=== PATIENT | female | born 1985 | race Caucasian/White ===

== ENCOUNTER 2025-03-26 04:27 | Observation (INO) | payer BC, SELFPAY ==
[2025-03-26 05:30] VITALS: BP 124/72
== END 2025-03-26 06:12 | disposition home or self-care (01) ==
LOC: LDRP 04:27
PROVIDERS: ADMITTING PHYSICIAN Obstetrics & Gynecology
DX: O36.8130 Decreased fetal movements, third trimester, not applicable or unspecified (principal); Z3A.28 28 weeks gestation of pregnancy
CPT/HCPCS: 59025; G0378

== ENCOUNTER → 2025-04-30 12:01 | Outpatient (REF) | payer BC, SELFPAY | LOC: PNTC 12:01 | PROVIDERS: ATTENDING PHYSICIAN Obstetrics & Gynecology | DX: O09.529 Supervision of elderly multigravida, unspecified trimester (principal); O99.210 Obesity complicating pregnancy, unspecified trimester; Q27.0 Congenital absence and hypoplasia of umbilical artery | CPT/HCPCS: 59025; 76816 ==

== ENCOUNTER 2025-05-07 15:04 | Observation (INO) | payer BC, SELFPAY ==
[2025-05-07 15:44] VITALS: BP 130/91; BMI 46.8
[2025-05-07 15:45] LABS: Hematocrit 38.1 % (37.0-47.0); Hemoglobin 12.8 g/dL (12.0-16.0); Mean Corp Hgb Conc. 33.6 g/dL (33.0-37.0); Mean Corpuscular Volume 84.7 fL (81.0-99.0); Nucleated Red Blood Cells % 0 %; Platelet Count 182 10^3/uL (130-400); Red Cell Dist. Width 14.5 % (11.5-14.5)
[2025-05-07 16:00] LABS: ALT (SGPT) 26 U/L (0-35); AST (SGOT) 22 U/L (14-36); Albumin 3.3 g/dl (3.5-5.0); Alkaline Phosphatase 279 U/L (38-126); Blood Urea Nitrogen 9 mg/dl (7-17); Calcium 9.5 mg/dl (8.4-10.2); Carbon Dioxide 22 mmol/L (22-30); Chloride 107 mmol/L (98-107); Estimated Creatinine Clearance > 125 ml/min; Glucose 115 mg/dl (70-99); Potassium 4.1 mmol/L (3.5-5.1); Sodium 134 mmol/L (135-145); Total Protein 5.7 g/dl (6.3-8.2); eGFR > 60.00
== END 2025-05-07 16:40 | disposition home or self-care (01) ==
LOC: PNTC-IN 15:04
PROVIDERS: ADMITTING PHYSICIAN Obstetrics & Gynecology; ATTENDING PHYSICIAN Student in an Organized Health Care Education/Training Program
DX: O26.893 Other specified pregnancy related conditions, third trimester (principal); O09.523 Supervision of elderly multigravida, third trimester; R03.0 Elevated blood-pressure reading, without diagnosis of hypertension; Z3A.34 34 weeks gestation of pregnancy
CPT/HCPCS: 59025; 76815; 80053; 82570; 84156; 85025; G0378

== ENCOUNTER 2025-05-15 11:57 | Observation (INO) | payer BC, SELFPAY ==
[2025-05-15 12:40] LABS: Hematocrit 40.2 % (37.0-47.0); Hemoglobin 13.5 g/dL (12.0-16.0); Mean Corp Hgb Conc. 33.6 g/dL (33.0-37.0); Mean Corpuscular Volume 85.0 fL (81.0-99.0); Platelet Count 172 10^3/uL (130-400); Red Cell Dist. Width 14.4 % (11.5-14.5)
[2025-05-15 12:47] LABS: Urine Character Clear (Clear)
[2025-05-15 12:50] LABS: ALT (SGPT) 25 U/L (0-35); AST (SGOT) 22 U/L (14-36); Albumin 3.3 g/dl (3.5-5.0); Alkaline Phosphatase 290 U/L (38-126); Blood Urea Nitrogen 12 mg/dl (7-17); Calcium 10.1 mg/dl (8.4-10.2); Carbon Dioxide 23 mmol/L (22-30); Chloride 107 mmol/L (98-107); Glucose 98 mg/dl (70-99); Potassium 3.8 mmol/L (3.5-5.1); Sodium 134 mmol/L (135-145); Total Protein 5.7 g/dl (6.3-8.2); eGFR > 60.00
[2025-05-15 12:52] VITALS: BP 145/92; BMI 46.8
[2025-05-15 12:58] LABS: Urine Red Blood Cell 0-2 /HPF (0-2); Urine Squamous Cell 21-25 /LPF (Few)
== END 2025-05-15 14:20 | disposition home or self-care (01) ==
LOC: PNTC-IN 11:57
PROVIDERS: ADMITTING PHYSICIAN Obstetrics & Gynecology; ATTENDING PHYSICIAN Student in an Organized Health Care Education/Training Program
DX: O26.893 Other specified pregnancy related conditions, third trimester (principal); O99.213 Obesity complicating pregnancy, third trimester; O09.523 Supervision of elderly multigravida, third trimester; Z3A.35 35 weeks gestation of pregnancy; Q27.0 Congenital absence and hypoplasia of umbilical artery; O99.343 Other mental disorders complicating pregnancy, third trimester; F32.A Depression, unspecified; Z36.1 Encounter for antenatal screening for raised alphafetoprotein level; Z88.5 Allergy status to narcotic agent; Z90.5 Acquired absence of kidney; Z79.82 Long term (current) use of aspirin; Z79.899 Other long term (current) drug therapy; Z83.3 Family history of diabetes mellitus; Z80.8 Family history of malignant neoplasm of other organs or systems; Z87.442 Personal history of urinary calculi
CPT/HCPCS: 59025; 76815; 80053; 81003; 81015; 82570; 84156; 85027; 86850; 86900; 86901; G0378

== ENCOUNTER → 2025-05-17 13:57 | Outpatient (REF) | payer BC, SELFPAY | LOC: PNTC 13:57 | PROVIDERS: ATTENDING PHYSICIAN Obstetrics & Gynecology | DX: O13.9 Gestational [pregnancy-induced] hypertension without significant proteinuria, unspecified trimester (principal) | CPT/HCPCS: 59025 ==

== ENCOUNTER 2025-05-21 09:18 | Observation (INO) | payer BC, SELFPAY ==
[2025-05-21 09:43] LABS: Hematocrit 41.2 % (37.0-47.0); Hemoglobin 13.7 g/dL (12.0-16.0); Mean Corp Hgb Conc. 33.3 g/dL (33.0-37.0); Mean Corpuscular Volume 85.3 fL (81.0-99.0); Platelet Count 172 10^3/uL (130-400); Red Cell Dist. Width 14.4 % (11.5-14.5)
[2025-05-21 09:44] LABS: Nucleated Red Blood Cells % 0 %
[2025-05-21 10:01] VITALS: BP 140/92; BMI 46.8
[2025-05-21 10:09] LABS: ALT (SGPT) 26 U/L (0-35); AST (SGOT) 23 U/L (14-36); Albumin 3.4 g/dl (3.5-5.0); Alkaline Phosphatase 334 U/L (38-126); Blood Urea Nitrogen 10 mg/dl (7-17); Calcium 9.4 mg/dl (8.4-10.2); Carbon Dioxide 23 mmol/L (22-30); Chloride 107 mmol/L (98-107); Glucose 81 mg/dl (70-99); Potassium 3.9 mmol/L (3.5-5.1); Sodium 136 mmol/L (135-145); Total Protein 5.8 g/dl (6.3-8.2); eGFR > 60.00
== END 2025-05-21 10:20 | disposition home or self-care (01) ==
LOC: PNTC-IN 09:18
PROVIDERS: ADMITTING PHYSICIAN Obstetrics & Gynecology
DX: O26.893 Other specified pregnancy related conditions, third trimester (principal); O09.513 Supervision of elderly primigravida, third trimester; O99.213 Obesity complicating pregnancy, third trimester; Z36.1 Encounter for antenatal screening for raised alphafetoprotein level; Q27.0 Congenital absence and hypoplasia of umbilical artery; R03.0 Elevated blood-pressure reading, without diagnosis of hypertension; O99.343 Other mental disorders complicating pregnancy, third trimester; F41.9 Anxiety disorder, unspecified; Z3A.36 36 weeks gestation of pregnancy; F32.A Depression, unspecified; Z87.442 Personal history of urinary calculi; Z83.3 Family history of diabetes mellitus; Z80.8 Family history of malignant neoplasm of other organs or systems; Z88.5 Allergy status to narcotic agent; Z79.82 Long term (current) use of aspirin
CPT/HCPCS: 76815; 80053; 82570; 84156; 85025; G0378

== ENCOUNTER 2025-05-28 19:39 | Inpatient (IN) | payer BC, SELFPAY ==
[2025-05-28 19:58] VITALS: BMI 46.8
[2025-05-28] MEDS: CYTOTEC 25 MICROGRAM VAG (20:50)
[2025-05-28 20:54] LABS: Hematocrit 37.4 % (37.0-47.0); Hemoglobin 13.1 g/dL (12.0-16.0); Mean Corp Hgb Conc. 35.0 g/dL (33.0-37.0); Mean Corpuscular Volume 84.2 fL (81.0-99.0); Nucleated Red Blood Cells % 0 %; Platelet Count 153 10^3/uL (130-400); Red Cell Dist. Width 14.1 % (11.5-14.5)
[2025-05-28 21:17] LABS: ALT (SGPT) 23 U/L (0-35); AST (SGOT) 24 U/L (14-36); Albumin 3.0 g/dl (3.5-5.0); Alkaline Phosphatase 294 U/L (38-126); Blood Urea Nitrogen 12 mg/dl (7-17); Calcium 9.2 mg/dl (8.4-10.2); Carbon Dioxide 21 mmol/L (22-30); Chloride 109 mmol/L (98-107); Estimated Creatinine Clearance > 125 ml/min; Glucose 130 mg/dl (70-99); Potassium 4.1 mmol/L (3.5-5.1); Sodium 135 mmol/L (135-145); Total Protein 5.3 g/dl (6.3-8.2); eGFR > 60.00
[2025-05-28 21:19] VITALS: BP 153/106
[2025-05-28] MEDS: TRANDATE 20 MG IV (21:47)
[2025-05-28] MEDS: MAGNESIUM SULFATE 100 IV (21:53)
[2025-05-28] MEDS: LR 1000 IV (21:53)
[2025-05-28] MEDS: CYMBALTA DELAYED RELEASE 90 MG PO (22:22)
[2025-05-28] MEDS: ZYRTEC 5 MG PO (22:23)
[2025-05-28] MEDS: WELLBUTRIN XL (24 hour extended release) 150 MG PO (22:23)
[2025-05-28] MEDS: SINGULAIR 10 MG PO (22:24)
[2025-05-28] MEDS: TRANDATE 40 MG IV (22:32)
[2025-05-28] MEDS: ATARAX 75 MG PO (22:36)
[2025-05-28] MEDS: LIDOCAINE URO-JET 2% 1 SYRINGE TOPICAL (22:38)
[2025-05-28] MEDS: MAGNESIUM SULFATE 40 GRAM 1000 IV (22:40)
[2025-05-29] MEDS: CYTOTEC 50 MICROGRAM PO ×2 (01:02→05:02)
[2025-05-29] MEDS: STADOL 1 MG IV ×2 (01:42→05:07)
[2025-05-29] MEDS: PRENATAL PLUS 1 TABLET PO (08:01)
[2025-05-29 08:21] LABS: Hematocrit 25.6 % (37.0-47.0); Hemoglobin 8.3 g/dL (12.0-16.0); Mean Corp Hgb Conc. 32.4 g/dL (33.0-37.0); Mean Corpuscular Volume 88.6 fL (81.0-99.0); Red Cell Dist. Width 14.6 % (11.5-14.5)
[2025-05-29 09:04] LABS: ALT (SGPT) 16 U/L (0-35); AST (SGOT) 16 U/L (14-36); Albumin 2.0 g/dl (3.5-5.0); Alkaline Phosphatase 312 U/L (38-126); Blood Urea Nitrogen 8 mg/dl (7-17); Calcium 6.8 mg/dl (8.4-10.2); Carbon Dioxide 15 mmol/L (22-30); Chloride 89 mmol/L (98-107); Estimated Creatinine Clearance > 125 ml/min; Glucose 68 mg/dl (70-99); Potassium 3.4 mmol/L (3.5-5.1); Sodium 109 mmol/L (135-145); Total Protein 3.7 g/dl (6.3-8.2); eGFR > 60.00
[2025-05-29 09:24] LABS: Hematocrit 40.4 % (37.0-47.0); Hemoglobin 13.8 g/dL (12.0-16.0); Mean Corp Hgb Conc. 34.2 g/dL (33.0-37.0); Mean Corpuscular Volume 84.5 fL (81.0-99.0); Platelet Count 153 10^3/uL (130-400); Red Cell Dist. Width 14.6 % (11.5-14.5)
[2025-05-29] MEDS: CYTOTEC PO ×2 (09:25→12:51)
[2025-05-29 09:30] LABS: Platelet Count 88 10^3/uL (130-400)
[2025-05-29] MEDS: PITOCIN 30 UNITS/NSS 500 ML IV (10:11)
[2025-05-29] MEDS: SUBLIMAZE 100 MCG EPIDURAL (10:37)
[2025-05-29] MEDS: FENTANYL/BUPIVACAINE 100 EPIDURAL (10:38)
[2025-05-29 12:55] LABS: Hematocrit 37.8 % (37.0-47.0); Hemoglobin 12.8 g/dL (12.0-16.0); Mean Corp Hgb Conc. 33.9 g/dL (33.0-37.0); Mean Corpuscular Volume 84.2 fL (81.0-99.0); Nucleated Red Blood Cells % 0 %; Platelet Count 145 10^3/uL (130-400); Red Cell Dist. Width 14.6 % (11.5-14.5)
[2025-05-29 13:12] LABS: ALT (SGPT) 23 U/L (0-35); AST (SGOT) 22 U/L (14-36); Albumin 3.0 g/dl (3.5-5.0); Alkaline Phosphatase 349 U/L (38-126); Blood Urea Nitrogen 11 mg/dl (7-17); Calcium 8.2 mg/dl (8.4-10.2); Carbon Dioxide 23 mmol/L (22-30); Chloride 106 mmol/L (98-107); Estimated Creatinine Clearance > 125 ml/min; Glucose 104 mg/dl (70-99); Magnesium 5.1 mg/dl (1.6-2.3); Potassium 4.2 mmol/L (3.5-5.1); Sodium 131 mmol/L (135-145); Total Protein 5.4 g/dl (6.3-8.2); eGFR > 60.00
[2025-05-29] MEDS: ZITHROMAX INFUSION 250 IV (14:22)
[2025-05-29] MEDS: ANCEF 15 MG IV (14:23)
[2025-05-29 14:50] LABS: Cord ABG Comment CORD BLOOD
[2025-05-29 14:54] LABS: B.E. Cord ABG -5.3 mMOL/L; HCO3 Cord ABG 26.1 mmol/L; PCO2 Cord ABG 82 mmHg; PO2 Cord ABG < 6 mmHg; pH Cord ABG 7.11
[2025-05-29] MEDS: TYLENOL 975 MG PO (14:54)
[2025-05-29 14:56] LABS: B.E. Cord ABG -5.2 mMOL/L; HCO3 Cord ABG 24.0 mmol/L; O2 Saturation % Cord ABG 50.0 %; PCO2 Cord ABG 60 mmHg; PO2 Cord ABG 19 mmHg; pH Cord ABG 7.21
[2025-05-29] MEDS: TORADOL 15 MG IV ×2 (18:00→23:49)
[2025-05-29] MEDS: MAGNESIUM SULFATE 40 GRAM 1000 IV ×2 (18:10)
[2025-05-29] MEDS: LR 1000 IV (18:28)
[2025-05-29 19:13] LABS: Magnesium 3.9 mg/dl (1.6-2.3)
[2025-05-29] MEDS: MAGNESIUM SULFATE 50 IV (20:15)
[2025-05-29] MEDS: ZYRTEC 5 MG PO (22:19)
[2025-05-29] MEDS: COLACE 100 MG PO (22:19)
[2025-05-29] MEDS: SINGULAIR 10 MG PO (22:20)
[2025-05-29] MEDS: WELLBUTRIN XL (24 hour extended release) 150 MG PO (22:20)
[2025-05-29] MEDS: CYMBALTA DELAYED RELEASE 90 MG PO (22:20)
[2025-05-29] MEDS: PROCARDIA XL (EXTENDED RELEASE) 30 MG PO (23:48)
[2025-05-29] MEDS: FLUSH (NSS) 1 FLUSH IV (23:50)
--- NOTE | 2025-05-30 02:52 | DOWNTIME ---
There was a [facility] [employer] Downtime on 05/30/2025 from 0100 to 05/30/2025 at 0215. Downtime documentation of patient's care, including medication administrations, has been reconciled in the electronic record per guidelines. Refer to the
patient's paper chart under the miscellaneous tab to see printed paper medication records and downtime forms.
[2025-05-30] MEDS: TORADOL 15 MG IV ×2 (05:58→12:03)
[2025-05-30 06:06] LABS: Hematocrit 33.1 % (37.0-47.0); Hemoglobin 11.8 g/dL (12.0-16.0); Mean Corp Hgb Conc. 35.6 g/dL (33.0-37.0); Mean Corpuscular Volume 84.2 fL (81.0-99.0); Platelet Count 143 10^3/uL (130-400); Red Cell Dist. Width 14.0 % (11.5-14.5)
[2025-05-30 06:33] LABS: ALT (SGPT) 20 U/L (0-35); AST (SGOT) 22 U/L (14-36); Albumin 2.7 g/dl (3.5-5.0); Alkaline Phosphatase 282 U/L (38-126); Blood Urea Nitrogen 14 mg/dl (7-17); Calcium 7.6 mg/dl (8.4-10.2); Carbon Dioxide 22 mmol/L (22-30); Chloride 107 mmol/L (98-107); Estimated Creatinine Clearance > 125 ml/min; Glucose 104 mg/dl (70-99); Potassium 4.5 mmol/L (3.5-5.1); Sodium 131 mmol/L (135-145); Total Protein 4.9 g/dl (6.3-8.2); eGFR > 60.00
[2025-05-30] MEDS: LR 1000 IV (06:41)
--- NOTE | 2025-05-30 08:17 | W.PN.ANS.POP ---
Anesthesia Post Operative
- Anesthesia Post Op Note
Vital Signs Stable-See Nursing Note: Yes
Airway Patent: Yes
Adequate Pain Control: Yes
Change in Mental Status: No
Current Postoperative Nausea & Vomiting: No
Anesthesia Complications: No
General Anesthetic Recall: No
Unplanned Admission: No
Post Op Hydration Adequate: Yes
- -
Pt awake and alert, resting comfortably with no anesthesia related c/o at time of post op.
[2025-05-30] MEDS: COLACE 100 MG PO ×2 (08:36→19:51)
[2025-05-30] MEDS: PRENATAL PLUS 1 TABLET PO (08:36)
[2025-05-30] MEDS: MAGNESIUM SULFATE 40 GRAM 1000 IV (14:45)
[2025-05-30] MEDS: MOTRIN 600 MG PO (18:19)
[2025-05-30] MEDS: TYLENOL 650 MG PO (18:19)
[2025-05-30] MEDS: PROCARDIA XL (EXTENDED RELEASE) 30 MG PO (21:44)
[2025-05-30] MEDS: SINGULAIR 10 MG PO (21:46)
[2025-05-30] MEDS: WELLBUTRIN XL (24 hour extended release) 150 MG PO (21:46)
[2025-05-30] MEDS: CYMBALTA DELAYED RELEASE 90 MG PO (21:46)
[2025-05-30] MEDS: ZYRTEC 5 MG PO (21:46)
[2025-05-30] MEDS: ROXICODONE 5 MG PO (23:39)
[2025-05-31] MEDS: LR IV (01:13)
[2025-05-31] MEDS: TYLENOL 650 MG PO ×2 (03:36→14:54)
[2025-05-31] MEDS: MOTRIN 600 MG PO ×3 (03:36→21:36)
[2025-05-31] MEDS: ROXICODONE 5 MG PO ×4 (03:39→21:38)
[2025-05-31] MEDS: COLACE 100 MG PO ×2 (08:20→20:36)
[2025-05-31] MEDS: PROCARDIA XL (EXTENDED RELEASE) 30 MG PO (08:20)
[2025-05-31] MEDS: PRENATAL PLUS 1 TABLET PO (08:20)
[2025-05-31] MEDS: SINGULAIR 10 MG PO (21:37)
[2025-05-31] MEDS: CYMBALTA DELAYED RELEASE 90 MG PO (21:38)
[2025-05-31] MEDS: WELLBUTRIN XL (24 hour extended release) 150 MG PO (21:38)
[2025-05-31] MEDS: ZYRTEC 5 MG PO (21:39)
[2025-06-01] MEDS: ROXICODONE 5 MG PO (04:53)
[2025-06-01] MEDS: MOTRIN 600 MG PO (04:53)
[2025-06-01] MEDS: PRENATAL PLUS 1 TABLET PO (08:06)
[2025-06-01] MEDS: COLACE 100 MG PO (08:06)
[2025-06-01] MEDS: PROCARDIA XL (EXTENDED RELEASE) 30 MG PO (08:06)
[2025-06-01 11:37] LABS: Syphilis/T. pallidum Ab Reflex Negative (Negative)
== END 2025-06-01 13:50 | disposition home or self-care (01) | DRG 788 ==
LOC: LDRP 19:39
PROVIDERS: Obstetrics & Gynecology; ADMITTING PHYSICIAN Student in an Organized Health Care Education/Training Program
PROC: 10D00Z1 Extraction of Products of Conception, Low, Open Approach (ICD-10-PCS; 2025-05-29)
DX: O14.14 Severe pre-eclampsia complicating childbirth (principal); Z3A.37 37 weeks gestation of pregnancy; Z37.0 Single live birth; O76 Abnormality in fetal heart rate and rhythm complicating labor and delivery; O99.214 Obesity complicating childbirth
CPT/HCPCS: 36415; 59025; 76816; 80053; 82570; 82803; 83735; 84156; 85025; 85027; 86780; 86850; 86900; 86901; 88307

== ENCOUNTER 2025-06-11 08:58 | Emergency (ER) | payer BC, SELFPAY ==
[2025-06-11] VITALS (7 sets, daily range): BP systolic 94–139; BP diastolic 63–93; BMI 44.9
--- NOTE | 2025-06-11 10:34 | ED.GENMED ---
History of Present Illness
General
Chief Complaint: Post Operative Problem(s)
Time Seen by Provider: 06/11/25 09:41
History of Present Illness
History of Present Illness:
39-year-old female who is 2 weeks postop from a due to preeclampsia is presenting to the emergency department for lower abdominal pain. Patient presents from her OB office where she was found to have bruising to her abdomen with concern
for hematoma. Patient has also had some mild dehiscence from her scar with discomfort and [facility] concern for abscess. Patient denies fevers. She denies vomiting. Denies any prior abdominal surgeries in the past. Denies any additional
acute medical complaints
Phy Exam
Physical Exam
Physical Exam:
General: Well-appearing, no clinical signs of dehydration, nontoxic and in no acute distress
HEENT: protecting airway
Neck: appears supple
CV: Normal heart rate, regular rhythm
Resp: No accessory muscle use, no increased work of breathing
Abd: Soft and non-distended, bruising to the abdomen at the right lower quadrant extending to the right flank. incision is clean and dry without surrounding erythema. Mild area of opening with clear/bloody drainage. No purulence.
Generalized tenderness to palpation
Extremities: No deformities, no swelling
Neuro: alert, no focal neurologic deficit
: deferred
Rectal: deferred
Psych: Normal affect
Skin: Intact
Course
Orders/Labs/Results
Orders:
Orders
06/11/25 Lunch
Regular
06/11/25 10:04
CT Abd/pelvis W Iv Cont Urgent
Comment:
Reason For Exam: lower abd pain, s/p , r/o abscess
06/11/25 10:05
Test Result ONCE
06/11/25 10:18
Complete Blood Count/With Diff Urgent
Comprehensive Metabolic Panel Urgent
HCG, Serum Qualitative Screen Urgent
Prothrombin Time Urgent
06/11/25 13:04
Consult Interventional Radiology [IRAD CONSULT] Urgent
Consulting Provider: Anuj Garcia
Was physician already notified: Yes
Procedure being ordered, including laterality if applicable: abscess vs seroma aspiration, lower abdomen
Acknowledgement that appropriate orders are entered: Yes
06/11/25 13:55
Ketorolac [Toradol] 15 mg IV NOW STA
Abnormal Lab Results
06/11/25
10:18
RBC 4.10 L 10^6/uL
(4.20-5.40)
Hgb 11.8 L g/dL
(12.0-16.0)
Hct 35.1 L %
(37.0-47.0)
Chloride 109 H mmol/L
(98-107)
BUN 22 H mg/dl
(7-17)
Alkaline Phosphatase 145 H U/L
(38-126)
Total Protein 5.9 L g/dl
(6.3-8.2)
06/11/25 10:18
06/11/25 10:18
Vital Signs
Initial and Last Documented VS:
Initial Vital Signs
Temp Pulse Resp BP Pulse Ox
97.8 F 101 18 133/93 98
06/11/25 09:07 06/11/25 09:07 06/11/25 09:07 06/11/25 09:07 06/11/25 09:07
Last Documented Vital Signs
Temp Pulse Resp BP Pulse Ox
97.8 F 98 16 121/83 98
06/11/25 15:15 06/11/25 15:45 06/11/25 15:45 06/11/25 15:45 06/11/25 15:45
MDM/Problems Addressed
MDM/Problems Addressed:
39-year-old female 2 weeks status post presenting for rule out abscess collection from [facility]. Vital signs are normal.
On exam patient resting comfortably, nontoxic, no acute distress. Relatively benign examination of the abdomen with generalized ecchymosis, however no focal collection of firmness or fluctuance. There is some generalized firmness around the
incision, however suspected to be some healing tissue versus scar tissue. Abscess however is certainly consideration. Will plan for laboratory analysis and CT abdomen pelvis
13:00-patient's labs are unremarkable. CT however does show concern of inflammatory stranding and scattered pockets of fluid along the incision. Concern for dehiscence versus infection. In discussion with OB, recommended discussing with IR for
possible drainage. Did discuss with IR who may be able to drain larger pocket.
15:30 -patient and IR with ultimate disposition pending drainage
*Pulse Oximetry
SaO2: 98
Oxygen Mode of Delivery: Room air
Patient hypoxic: no
*Critical Care Note
Total Time (30-74mins, 75-104mins- exclusive of procedures): Not Applicable
ED Attending Note
-
Portions of this chart may have been created with voice recognition software.� Occasional wrong word or��sound alike� substitutions may have occurred due to the inherent limitations of voice recognition software.
Discharge Plan
Departure
Prescriptions:
No Action
duloxetine 30 mg Capsule,Delayed Release(Dr/Ec)
90 mg PO DAILY
Vit
1 tab PO DAILY
Singulair
10 mg PO QDAY
Wellbutrin
150 mg PO DAILY
Xyzal
5 mg PO DAILY
acetaminophen 325 mg Tablet
650 mg PO Q4HPRN PRN (Reason: mild pain) Qty: 0 0RF
nifedipine 30 mg Tablet Extended Release
30 mg PO DAILY Qty: 60 0RF
docusate sodium 100 mg Capsule
100 mg PO BID Qty: 0 0RF
ibuprofen 600 mg Tablet
600 mg PO Q6HPRN PRN (Reason: cramps) Qty: 45 0RF
oxycodone 5 mg Tablet
5 mg PO Q4HPRN PRN (Reason: moderate pain) Qty: 10 0RF
Referrals:
UNKNOWN,PT [Family Provider]
Interventions
Interventions:
*Risk Screen - Suicide Last Done: 06/11/25 09:07
*General Assessment Last Done: 06/11/25 10:30
*Neglect/Abuse Screening Last Done: 06/11/25 10:30
*ED COVID-19 Vaccine History Last Done: 06/11/25 10:30
*ED Influenza Vaccine History Last Done: 06/11/25 10:30
ED-Skin Assessment Last Done: 06/11/25 10:30
Discharge Date and Time
Print Language: GERMAN
[2025-06-11 10:42] LABS: Hematocrit 35.1 % (37.0-47.0); Hemoglobin 11.8 g/dL (12.0-16.0); Mean Corp Hgb Conc. 33.6 g/dL (33.0-37.0); Mean Corpuscular Volume 85.6 fL (81.0-99.0); Nucleated Red Blood Cells % 0 %; Platelet Count 275 10^3/uL (130-400); Red Cell Dist. Width 13.6 % (11.5-14.5)
[2025-06-11 10:45] LABS: INR 0.92; PT 12.6 Sec (11.4-14.6)
[2025-06-11 11:05] LABS: HCG, Serum Qualitative Screen Positive
[2025-06-11 11:11] LABS: ALT (SGPT) 22 U/L (0-35); AST (SGOT) 20 U/L (14-36); Albumin 3.5 g/dl (3.5-5.0); Alkaline Phosphatase 145 U/L (38-126); Blood Urea Nitrogen 22 mg/dl (7-17); Calcium 8.9 mg/dl (8.4-10.2); Carbon Dioxide 26 mmol/L (22-30); Chloride 109 mmol/L (98-107); Estimated Creatinine Clearance > 125 ml/min; Glucose 91 mg/dl (70-99); Potassium 4.2 mmol/L (3.5-5.1); Sodium 138 mmol/L (135-145); Total Protein 5.9 g/dl (6.3-8.2); eGFR > 60.00
[2025-06-11] MEDS: TORADOL 15 MG IV (14:13)
--- NOTE | 2025-06-11 14:18 | CON.MD ---
Documented by User: Sivan Deleon MD, Resident 06/11/25 16:48
Consultation - Medical
-
HPI:
39-year-old female G1, P1 with recent emergency on 05/29 due to nonreassuring heart rate with complications of preeclampsia presents to the ER for incision related lower abdominal pain and bleeding. Post- operatively, she had some
residual right sided lower abdominal pain. At her 1 week follow-up with her [facility], she was noted to have a hematoma along the right lower edge of her incision. They started her on cephalexin 500 every 6 hours and recommended to come to the ER for
a CT for further evaluation. Due to scheduling issues, patient did not come in. Today, the patient came back to her [facility] for close follow-up and they noted bleeding increased erythema along the right lower incision line and recommended
for her to come to the ER. She does endorse pain along the incision line, small amounts of bleeding. She denies any fevers, chills, nausea, vomiting, diarrhea, chest pain, heart palpitations, shortness of breath.
In the ED initial vitals reveal blood pressure 133/93, heart rate 101, respiratory rate 18, 98% on room air, afebrile. White count was within normal limits at 5.2. Hemoglobin at baseline 0.8. CT 06/11/25 revealed the below findings compatible
with recent prior section. Moderate amount of inflammatory stranding and scattered pockets of fluid along the incision, the largest measuring approximately 3.1 x 6.1 x 3.2 cm. Small amount of gas within the incision with skin thickening and
subcutaneous stranding. Findings suspicious for early wound dehiscence/infection. Uncertain if the large pocket of fluid is a seroma with small abscess not excluded.
PMHx:
Anxiety/depression
Congenital absent right kidney
Asthma
Kidney stones
GERD
Obesity BMI 44.9
Surgical History:
05/29/25
Social history:
Denies any tobacco, alcohol or drug use
Family history: Non-contributory
Allergies
Allergy/AdvReac Type Severity Reaction Status Date / Time
morphine Allergy Rash Verified 06/11/25 09:07
Home Medications
Vit 1 tab PO DAILY Supplement 03/26/25
Singulair 10 mg PO QDAY asthma 03/26/25
Wellbutrin 150 mg PO DAILY Neurological Condition 03/26/25
duloxetine 30 mg capsule,delayed release 90 mg PO DAILY Neurological Condition 03/26/25
Xyzal 5 mg PO DAILY Allergies 05/28/25
acetaminophen 325 mg tablet 650 mg (2 x 325 mg) PO Q4HPRN PRN mild pain #0 tabs 06/01/25
docusate sodium 100 mg capsule 100 mg PO BID #0 caps 06/01/25
ibuprofen 600 mg tablet 600 mg PO Q6HPRN PRN cramps #45 tabs 06/01/25
nifedipine 30 mg tablet,extended release 30 mg PO DAILY #60 tabs 06/01/25
oxycodone 5 mg tablet 5 mg PO Q4HPRN PRN moderate pain #10 tabs 06/01/25
PHYSICAL EXAM:
VITAL SIGNS: BP 128/74, HR 101, RR 18, Temp 97.8, O2 97%
GENERAL: Tearful and upset. Hungry and wants to go home.
HEART: Regular S1,S2, no murmurs, rubs or gallops
LUNGS: Clear breath sounds bilaterally
ABDOMEN: Normal bowel sounds x4, erythema noted along right side of incision with bleeding present. No purulence or foul smell. Ab tender along incision site. No overt mass palpated. Bruising noted in RLQ extending into right flank.
EXTREMITIES: No lower extremity edema or cyanosis
ASSESSMENT:
39-year-old female with recent on 05/29/25 presents with fluid collection along incision site concerning for seroma versus abscess.
PLAN:
Seroma vs abscess
--Appreciate IR for drainage
--Send for cultures and fluid analysis
--Wound care per IR
--f/u outpatient
Possible cellulitis along right side of incision
--Started on cephalexin 500 four times daily during last OB visit on 06/08/25
--Continue
Reviewed imaging with radiologist and based on imaging findings along with clinical picture without searing pain, fascial dehiscence is low on differential. We will recommend close follow up outpatient. Follow cultures and fluid analysis of
drainage.
Consultation
-
Date/Time Consultation Requested: 06/11/25 16:37
Date/Time Consultation Performed: 06/11/25 14:20
Requesting Provider: Dr. Seb Chavez
Performing Provider: Dr. Mack Crockett
Reason for Consultation: post-op seroma

Documented by User: Mack Crockett MD 06/11/25 17:31
Consultation - Medical
-
HPI:
39-year-old female G1, P1 with emergency on 05/29 due to nonreassuring heart rate with complications of preeclampsia presents to the ER for incision related lower abdominal pain and bleeding. Post- operatively, she had some residual
right sided lower abdominal pain. At her 1 week follow-up with her [facility], she was noted to have a hematoma along the right lower edge of her incision. They started her on cephalexin 500 every 6 hours and recommended to come to the ER for a CT for
further evaluation. Due to scheduling issues, patient did not come in. Today, the patient came back to her [facility] for close follow-up and they noted bleeding increased erythema along the right lower incision line and recommended for her
to come to the ER. She does endorse pain along the incision line, small amounts of bleeding. She denies any fevers, chills, nausea, vomiting, diarrhea, chest pain, heart palpitations, shortness of breath.
In the ED initial vitals reveal blood pressure 133/93, heart rate 101, respiratory rate 18, 98% on room air, afebrile. White count was within normal limits at 5.2. Hemoglobin at baseline 0.8. CT 06/11/25 revealed the below findings compatible
with recent prior section. Moderate amount of inflammatory stranding and scattered pockets of fluid along the incision, the largest measuring approximately 3.1 x 6.1 x 3.2 cm. Small amount of gas within the incision with skin thickening and
subcutaneous stranding. Findings suspicious for early wound dehiscence/infection. Uncertain if the large pocket of fluid is a seroma with small abscess not excluded.
PMHx:
Anxiety/depression
Congenital absent right kidney
Asthma
Kidney stones
GERD
Obesity BMI 44.9
Surgical History:
05/29/25
Social history:
Denies any tobacco, alcohol or drug use
Family history: Non-contributory
Allergies
Allergy/AdvReac Type Severity Reaction Status Date / Time
morphine Allergy Rash Verified 06/11/25 09:07
Home Medications
Vit 1 tab PO DAILY Supplement 03/26/25
Singulair 10 mg PO QDAY asthma 03/26/25
Wellbutrin 150 mg PO DAILY Neurological Condition 03/26/25
duloxetine 30 mg capsule,delayed release 90 mg PO DAILY Neurological Condition 03/26/25
Xyzal 5 mg PO DAILY Allergies 05/28/25
acetaminophen 325 mg tablet 650 mg (2 x 325 mg) PO Q4HPRN PRN mild pain #0 tabs 06/01/25
docusate sodium 100 mg capsule 100 mg PO BID #0 caps 06/01/25
ibuprofen 600 mg tablet 600 mg PO Q6HPRN PRN cramps #45 tabs 06/01/25
nifedipine 30 mg tablet,extended release 30 mg PO DAILY #60 tabs 06/01/25
oxycodone 5 mg tablet 5 mg PO Q4HPRN PRN moderate pain #10 tabs 06/01/25
PHYSICAL EXAM:
VITAL SIGNS: BP 128/74, HR 101, RR 18, Temp 97.8, O2 97%
GENERAL: Tearful and upset. Hungry and wants to go home.
HEART: Regular S1,S2, no murmurs, rubs or gallops
LUNGS: Clear breath sounds bilaterally
ABDOMEN: Normal bowel sounds x4, erythema noted along right side of incision with bleeding present. No purulence or foul smell. Ab tender along incision site. No overt mass palpated. Bruising noted in RLQ extending into right flank.
EXTREMITIES: No lower extremity edema or cyanosis
ASSESSMENT:
39-year-old female with recent on 05/29/25 presents with fluid collection along incision site concerning for seroma versus abscess.
PLAN:
Seroma vs abscess
--Appreciate IR for drainage
--Send for cultures and fluid analysis
--Wound care per IR
--f/u outpatient
Possible cellulitis along right side of incision
--Started on cephalexin 500 four times daily during last OB visit on 06/08/25
--Continue
Reviewed imaging with radiologist and based on imaging findings along with clinical picture without searing pain, fascial dehiscence is low on differential. We will recommend close follow up outpatient. Follow cultures and fluid analysis of
drainage.
Pt seen again after IR drainage, feels better. Will continue with Keflex, has appointment for post op check in 3 days, will call sooner if develops fever, severe pain or any additional concerns about the incision.
Patient seen and examined by me, agree with note, edit are for clarification. MD Emily
== END 2025-06-11 17:45 | disposition home or self-care (01) ==
LOC: EMR 08:58
PROVIDERS: CONSULT PHYSICIAN Obstetrics & Gynecology; CONSULT PHYSICIAN Radiology Vascular & Interventional Radiology; EMERGENCY PHYSICIAN Student in an Organized Health Care Education/Training Program
DX: L76.34 Postprocedural seroma of skin and subcutaneous tissue following other procedure (principal); E66.9 Obesity, unspecified; F41.8 Other specified anxiety disorders; J45.909 Unspecified asthma, uncomplicated; Z87.442 Personal history of urinary calculi
CPT/HCPCS: 99284; 96374; 10160; 74177; 76942; 80053; 84703; 85025; 85610; 87070; 87205; Q9967